=== PATIENT | male | born 1930 | race Caucasian/White ===

== ENCOUNTER 2016-08-16 11:25 | Inpatient (IN) | payer MEDICARE, BC ==
--- NOTE | ~2016-08-16 | HP ---
History And Physical [id number] [place]. [address] NAME: LUIS M LUIS : [birth year] STATUS : ADM IN [facility]#: [id number] AGE: 86 ADM/REG DATE : 08/16/16 MR#: [id number] REPORT SERV DATE: 08/16/16 DICTATED BY: SUKI SUAREZ DATE: 08/16/16 REPORT STATUS : Draft TRANSCRIBED BY: MODL DATE: 08/16/16 DATE OF ADMISSION: 08/16/2016 Primary care doctor is apparently Dr. 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 HISTORY OF PRESENT ILLNESS: This is an 86-year-old male with known past medical history of neuropathy, hypertension, apparently rheumatoid arthritis on chronic prednisone, used to take Plaquenil but no longer does, known history of essential tremor thought to be an Parkinson's then apparently was not diagnosed of Parkinson but yet is still on carbidopa levodopa, history of gout, osteoarthritis. Surgical history includes unclear back surgery and unclear nose surgery. Known additional history of CLL, apparently not undergoing treatment, sees Dr. Magana. The patient comes in past two days with increased productive cough, myalgias all over, increased urination as well as having decreased ability, not able to even get up from using the bathroom. This is not typical for patient normal state, has positive fevers, positive chills. Positive nausea. No vomiting. No diarrhea. No chest pain. No chest pressure. Positive shortness of breath. Positive productive cough. PAST MEDICAL HISTORY: See above. PAST SURGICAL HISTORY: See above. ALLERGIES: APPARENTLY NO KNOWN DRUG ALLERGIES. SOCIAL HISTORY: Used to smoke may be about 60 pack year in distant past. No alcohol. No drug use. Lives at home. 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 HOME MEDICATIONS: See MAR. We will continue what is relevant. Apparently, he is on allopurinol, carbidopa, levodopa, Lasix, gabapentin, prednisone 5 mg a day, and Voltaren. FAMILY HISTORY: Hypertension at least in one parent. REVIEW OF SYSTEMS: Review of systems done, see HPI. Otherwise, negative. OBJECTIVE: VITAL SIGNS: Currently 138/67, 98.9 temp, 77 pulse, 20 respirations, 94% on room air. GENERAL: No acute distress. HEENT: PERRLA. No scleral icterus. CARDIOVASCULAR: Regular rate and rhythm. No murmur auscultated. RESPIRATORY: Bibasilar crackles. Mild expiratory wheezing per the ER. I do not appreciate it at this time. ABDOMEN: Nontender, nondistended. Positive bowel sounds. EXTREMITIES: About 1+ to 2+ pitting edema bilaterally. History And Physical [address] [place]. [address] NAME: LUIS M LUIS : [birth year] STATUS : ADM IN PAT#: [id number] AGE: 86 ADM/REG DATE : 08/16/16 MR#: [id number] REPORT SERV DATE: 08/16/16 DICTATED BY: SUKI SUAREZ DATE: 08/16/16 REPORT STATUS : Draft TRANSCRIBED BY: TAMIKA DATE: 08/16/16 NEURO: A and O x4/4. GCS 15. Hard of hearing. LABS: White count 15.3, hemoglobin 12.5, 231,000 platelets, 4.6 potassium, 27 bicarb, 0.8 creatinine, 15 BUN, 134 sodium, 119 sugar. Troponin negative. Urinalysis; positive 70 white blood cells, moderate leukocyte esterase. EKG has a normal sinus rhythm, no ischemic ST-T changes significant artifact though with baseline. ASSESSMENT AND PLAN: 1. Sepsis. 2. Urinary tract infection. 3. Possible right middle lobe pneumonia seen on chest x-ray with right middle lobe alveolar infiltration. Poor hazy border. 4. History of immunocompromised due to prednisone at home and CLL. 5. Debility. 6. Volume overload. PLAN: We will go ahead and admit this patient. IV Levaquin Bumex, get an echo if not done in last 6 months. Get records, Levaquin after the hancock-culture, placed on Solu-Medrol, was started by the ED thought to have had a wheezing at that time. He likely will need an outpatient pulmonary function tests. Placed on carvedilol and losartan. Start losartan tomorrow if systolic is amenable, placed on Lipitor at this time, the EF or echo. All questions were answered. It took well over 60 minutes to do. Reference [email or web address] and [facility]. WST/MODL Suki Suarez DO / [id number] CC: MD Ho Ford M.D.
--- NOTE | ~2016-08-16 | DS ---
Discharge Summary [facility] [address] [place]. [address] NAME: LUIS M LUIS : [birth year] STATUS : ADM IN [facility]#: [id number] AGE: 86 ADM/REG DATE : 08/16/16 MR#: [id number] REPORT SERV DATE: 08/21/16 DICTATED BY: GIANFRANCO CARRERA DATE: 08/20/16 REPORT STATUS : Draft TRANSCRIBED BY: MODL DATE: 08/20/16 ADMISSION DATE: 08/16/2016 DISCHARGE DATE: DISCHARGE DIAGNOSES: Include: 1. Right upper lobe pneumonia present on admission and cough. 2. Volume overload that is improved. 3. Debility and falls at home. 4. History of immunocompromised, on chronic steroids. 5. History of CLL, chronic lymphocytic leukemia. 6. History of rheumatoid arthritis. 7. Leukocytosis, related to steroid use. DISCHARGE MEDICATIONS: As follows; allopurinol 300 mg daily, Tessalon 100 mg three times a day as needed for cough, Neurontin 300 mg p.o. four times a day, Inderal 20 mg twice a day, Levaquin 750 mg daily through 08/22/2016, Cozaar 25 mg daily, Prilosec 40 mg daily, prednisone 5 mg daily, albuterol nebulizers q.4 hours while awake, folic acid 1 mg daily, glucosamine one tab daily, Voltaren gel applied topically p.r.n., vitamin B12 1000 mcg every 30 days, Plaquenil 400 mg daily to resume in seven days. HISTORY OF PRESENT ILLNESS: This pleasant 86-year-old male, who presented to the [facility] with a productive cough, myalgias, and increased urination. Please see initial H and P of Dr. Igor Viveros. The patient admitted to hospitalist service for further evaluation and treatment. PROCEDURES AND IMAGING DURING THIS ADMISSION: Include a venous Doppler ultrasound lower extremity showing no evidence of any DVT. A CT of the abdomen and pelvis that showed a diverticulosis but no diverticulitis. No definite abnormality that is acute within the abdomen or pelvis. 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 Also an echocardiogram showing ejection fraction of 50% to 55%. No valvular abnormalities noted. CONTINUATION OF HOSPITAL COURSE: The patient was continued on antibiotic therapy of Levaquin, given nebulizers and O2 and initially given some diuretic therapy as well, and he began to improve somewhat although his cough was quite persistent. Given the findings of his echocardiogram, the IV Bumex was discontinued, and he was given 1 dose of p.o. torsemide, and this has been since discontinued as well. He was seen and evaluated by Physical Therapy during this admission who recommended rehab at discharge. He was evaluated by [facility] and approved for their facility and was felt safe for discharge on 08/20/2016 with the above medicines. I have also instructed followup with primary care in two to three weeks, to check CBC two days at [facility] as well. Of note too, his urinary culture came back with no growth so urinary tract infection ruled out. Updated at bedside. Patient at bedside, and they are in agreement with this plan going forward. Please note greater than 30 minutes spent on this discharge for medication teaching, followup planning, and further disposition. Discharge Summary [address] [place]. [address] NAME: LUIS M LUIS : [birth year] STATUS : ADM IN [facility]#: [id number] AGE: 86 ADM/REG DATE : 08/16/16 MR#: [id number] REPORT SERV DATE: 08/21/16 DICTATED BY: GIANFRANCO CARRERA DATE: 08/20/16 REPORT STATUS : Draft TRANSCRIBED BY: TAMIKA DATE: 08/20/16 VISHAL/TAMIKA Gianfranco Carrera NP / [id number] CC: Jeffry Larson M.D.
[~2016-08-16 11:25] MED LIST: ATEN50 PO; CO Q-10100 MG PO; FISH-EPA1000 MG PO; GLUCCHONDR PO; HALF81 PO; L40 PO; MVI PO; NEUR100 PO; SIN-CR PO; VITAMIN B-121000 MC1 SL; VITAMIN D400 UNI1 PO; VOLTAREN1 % TOP; ZAROX2.5B PO; ZESTRIL5 MG PO; [UNRECOGNIZED DRUG - REMARK]
[2016-08-16 12:26] LABS: BASOPHILS 0.1 %; BASOPHILS ABSOLUTE 0.02 10/3/uL (0.0-0.16); EOSINOPHILS 0.5 %; EOSINOPHILS ABSOLUTE 0.07 10/3/uL (0.0-0.53); ER CBC TAT 0 Hrs 07 Mins; HEMATOCRIT 34.8 % (40.0-51.0); HEMOGLOBIN 12.5 g/dL (13.6-17.8); IMMATURE GRANULOCYTES 0.5 %; IMMATURE GRANULOCYTES ABSOLUTE 0.08 10/3/uL (0.0-0.11); LYMPHOCYTES 25.1 %; LYMPHOCYTES ABSOLUTE 3.84 10/3/uL (0.67-4.30); MANUAL DIFF NO %; MEAN CORPUS HGB CONC 35.9 g/dL (32.0-36.0); MEAN CORPUSCULAR HEMOGLOB 35.7 pg (26.0-34.0); MEAN CORPUSCULAR VOLUME 99.4 fL (80-100); MEAN PLATELET VOLUME 9.2 fL (9.2-13.0); MONOCYTES 21.6 %; MONOCYTES ABSOLUTE 3.31 10/3/uL (0.21-1.20); NEUTROPHILS 52.2 %; PLATELET COUNT 231 10/3/uL (150-400); RBC DISTRIBUTION WIDTH 12.8 % (12.0-16.0); WHITE BLOOD CELLS 15.3 10/3/uL (4.5-10.5)
[2016-08-16 12:35] LABS: INTERNATIONAL NORMAL RATI 1.2 UNITS (-); PROTIME (NOT ORD) 15.3 SEC (12.0-14.5)
[2016-08-16 12:36] LABS: INFLUENZA A SCREEN NEGATIVE (NEGATIVE); INFLUENZA B SCREEN NEGATIVE (NEGATIVE)
[2016-08-16 12:36] LABS: PARTIAL THROMBO TIME 44.9 SEC (22.5-37.2)
[2016-08-16 12:42] LABS: LACTATE 1.4 MMOL/L (0.3-2.4)
[2016-08-16 12:42] LABS: CALCIUM, SERUM 8.8 MG/DL (8.5-10.4); CHEST PAIN PROFILE TAT 0 Hrs 23 Mins; CHLORIDE, SERUM 98 MMOL/L (96-112); CO2 (CARBON DIOXIDE) 27 MMOL/L (24-34); GFR AFRICAN AMERICAN 92 ML/MIN (>=60); GFR NON AFRICAN AMERICAN 80 ML/MIN (>=60); POTASSIUM, SERUM 4.6 MMOL/L (3.5-5.3); SODIUM, SERUM 134 MMOL/L (135-148); TROPONIN I <0.02 NG/ML (<0.05)
[2016-08-16 12:43] LABS: BUN (BLOOD UREA NITROGEN) 15 MG/DL (6-23); GLUCOSE, SERUM 119 MG/DL (60-99)
[2016-08-16 12:46] LABS: BAND NEUTROPHILS 21 %; BASOPHILS 1 %; BASOPHILS ABSOLUTE (CALC) 0.15 10/3/uL (0.0-0.16); EOSINOPHILS 1 %; EOSINOPHILS ABSOLUTE (CALC) 0.15 10/3/uL (0.0-0.53); ER DIFF TAT 0 Hrs 27 Mins; LYMPHOCYTES 17 %; MONOCYTES 23 %; MONOCYTES ABSOLUTE (CALC) 3.52 10/3/uL (0.21-1.20); NEUTROPHILS ABSOLUTE (CALC) 8.87 10/3/uL (2.02-8.40); SEGMENTED NEUTROPHIL (0) 37 %; TOTAL NUCLEATED CELLS 100
[2016-08-16 12:47] LABS: PLATELET ESTIMATE ADQ (ADEQUATE); POLYCHROMASIA 1+ (2-5/OIF) (0-1/OIF); TOXIC GRANULATION 1+
[2016-08-16 12:55] LABS: ASCORBIC ACID (UR NOT ORDER) NEG (NEG); BILIRUBIN, URINE NEGATIVE (NEG); ER URINALYSIS TAT 0 Hrs 09 Mins; KETONE, URINE TRACE MG/DL (NEG); LEUKOCYTE ESTERASE(NOT OR MOD (NEG); NITRITE (URINE) NEG (NEG); WBC (NOT ORDERED) (RFLEX) 17 (0-5)
[2016-08-16 13:14] LABS: PROCALCITONIN 0.31 ng/mL (<0.5)
[2016-08-16] MEDS ORDERED: PRILOSEC40 MG PO (14:58)
[2016-08-16] MEDS ORDERED: NEUR300 PO (14:58)
[2016-08-16] MEDS ORDERED: P5 PO (14:59)
[2016-08-16] MEDS ORDERED: I20 PO (14:59)
[2016-08-16] MEDS ORDERED: Z300 PO (14:59)
[2016-08-16] MEDS ORDERED: FOLIC PO (14:59)
[2016-08-16] MEDS ORDERED: PLAQ200B PO (14:59)
[2016-08-16] MEDS ORDERED: ALEVE220 MG PO (14:59)
[2016-08-16] MEDS ORDERED: PROAIR HFA INH (15:00)
[2016-08-16] MEDS ORDERED: GLUCOSAMINEPO PO (15:00)
[2016-08-16] MEDS ORDERED: B121000P IM (15:00)
[2016-08-16] MEDS ORDERED: VOLTAREN1 % TOP (15:00)
[2016-08-16] MEDS ORDERED: TURMERIC PO (15:00)
[2016-08-16 18:33] LABS: LACTATE 1.7 MMOL/L (0.3-2.4)
[2016-08-16 18:39] LABS: BUN (BLOOD UREA NITROGEN) 14 MG/DL (6-23); CALCIUM, SERUM 8.7 MG/DL (8.5-10.4); CHLORIDE, SERUM 99 MMOL/L (96-112); CO2 (CARBON DIOXIDE) 27 MMOL/L (24-34); CREATININE 0.86 MG/DL (0.70-1.30); GFR AFRICAN AMERICAN 90 ML/MIN (>=60); GFR NON AFRICAN AMERICAN 77 ML/MIN (>=60); PHOSPHORUS, SERUM 2.9 MG/DL (2.5-4.5); POTASSIUM, SERUM 4.3 MMOL/L (3.5-5.3); SGOT(AST) 39 U/L (5-40); SGPT(ALT) 50 U/L (5-65); SODIUM, SERUM 133 MMOL/L (135-148); TOTAL BILIRUBIN 0.7 MG/DL (0-1.2); TOTAL PROTEIN 6.7 G/DL (6.0-8.5)
[2016-08-16 18:40] LABS: A/G RATIO 0.7 (0.7-1.9); ALBUMIN 2.8 G/DL (3.5-5.0); ALKALINE PHOSPHATASE 63 U/L (45-117); GLOBULIN 3.9 G/DL (2.5-4.1); GLUCOSE, SERUM 209 MG/DL (60-99); ULTRASENSITIVE TSH 0.651 MCIU/ML (0.358-3.740)
[2016-08-17 06:32] LABS: BUN (BLOOD UREA NITROGEN) 18 MG/DL (6-23); CALCIUM, SERUM 8.7 MG/DL (8.5-10.4); CHLORIDE, SERUM 100 MMOL/L (96-112); CO2 (CARBON DIOXIDE) 27 MMOL/L (24-34); CREATININE 0.75 MG/DL (0.70-1.30); GFR AFRICAN AMERICAN 95 ML/MIN (>=60); GFR NON AFRICAN AMERICAN 82 ML/MIN (>=60); GLUCOSE, SERUM 162 MG/DL (60-99); PHOSPHORUS, SERUM 3.6 MG/DL (2.5-4.5); POTASSIUM, SERUM 3.7 MMOL/L (3.5-5.3); SODIUM, SERUM 139 MMOL/L (135-148)
[2016-08-17 06:43] LABS: BASOPHILS 0.1 %; BASOPHILS ABSOLUTE 0.01 10/3/uL (0.0-0.16); EOSINOPHILS 0 %; HEMATOCRIT 32.5 % (40.0-51.0); HEMOGLOBIN 11.6 g/dL (13.6-17.8); IMMATURE GRANULOCYTES 0.7 %; LYMPHOCYTES 20.5 %; LYMPHOCYTES ABSOLUTE 2.82 10/3/uL (0.67-4.30); MANUAL DIFF NO %; MEAN CORPUS HGB CONC 35.7 g/dL (32.0-36.0); MEAN CORPUSCULAR HEMOGLOB 34.9 pg (26.0-34.0); MEAN CORPUSCULAR VOLUME 97.9 fL (80-100); MEAN PLATELET VOLUME 9.1 fL (9.2-13.0); MONOCYTES 7.1 %; MONOCYTES ABSOLUTE 0.97 10/3/uL (0.21-1.20); NEUTROPHILS 71.6 %; NEUTROPHILS ABSOLUTE 9.85 10/3/uL (2.02-8.40); PLATELET COUNT 208 10/3/uL (150-400); RBC DISTRIBUTION WIDTH 12.7 % (12.0-16.0); RED CELL COUNT 3.32 10/6/uL (4.7-6.1); WHITE BLOOD CELLS 13.8 10/3/uL (4.5-10.5)
[2016-08-18 06:06] LABS: BASOPHILS 0.1 %; BASOPHILS ABSOLUTE 0.01 10/3/uL (0.0-0.16); EOSINOPHILS 0 %; HEMATOCRIT 35.4 % (40.0-51.0); HEMOGLOBIN 12.6 g/dL (13.6-17.8); IMMATURE GRANULOCYTES 0.5 %; IMMATURE GRANULOCYTES ABSOLUTE 0.08 10/3/uL (0.0-0.11); LYMPHOCYTES 17.3 %; MEAN CORPUS HGB CONC 35.6 g/dL (32.0-36.0); MEAN CORPUSCULAR HEMOGLOB 35.3 pg (26.0-34.0); MEAN CORPUSCULAR VOLUME 99.2 fL (80-100); MEAN PLATELET VOLUME 8.8 fL (9.2-13.0); NEUTROPHILS 73.1 %; NEUTROPHILS ABSOLUTE 11.44 10/3/uL (2.02-8.40); RBC DISTRIBUTION WIDTH 12.7 % (12.0-16.0); RED CELL COUNT 3.57 10/6/uL (4.7-6.1); WHITE BLOOD CELLS 15.6 10/3/uL (4.5-10.5)
[2016-08-18 06:08] LABS: MANUAL DIFF NO %; PLATELET COUNT 283 10/3/uL (150-400)
[2016-08-18 06:21] LABS: CALCIUM, SERUM 8.9 MG/DL (8.5-10.4); CHLORIDE, SERUM 98 MMOL/L (96-112); CO2 (CARBON DIOXIDE) 28 MMOL/L (24-34); CREATININE 0.93 MG/DL (0.70-1.30); GFR AFRICAN AMERICAN 85 ML/MIN (>=60); GFR NON AFRICAN AMERICAN 73 ML/MIN (>=60); GLUCOSE, SERUM 169 MG/DL (60-99); PHOSPHORUS, SERUM 3.6 MG/DL (2.5-4.5); SODIUM, SERUM 139 MMOL/L (135-148)
[2016-08-18 06:22] LABS: BUN (BLOOD UREA NITROGEN) 24 MG/DL (6-23)
[2016-08-19 05:26] LABS: BASOPHILS 0.2 %; BASOPHILS ABSOLUTE 0.03 10/3/uL (0.0-0.16); EOSINOPHILS 0 %; HEMATOCRIT 36.9 % (40.0-51.0); HEMOGLOBIN 12.9 g/dL (13.6-17.8); IMMATURE GRANULOCYTES 0.6 %; LYMPHOCYTES 26.9 %; LYMPHOCYTES ABSOLUTE 4.38 10/3/uL (0.67-4.30); MEAN PLATELET VOLUME 8.5 fL (9.2-13.0); MONOCYTES 15.7 %; MONOCYTES ABSOLUTE 2.56 10/3/uL (0.21-1.20); NEUTROPHILS 56.6 %; NEUTROPHILS ABSOLUTE 9.21 10/3/uL (2.02-8.40); PLATELET COUNT 275 10/3/uL (150-400); RBC DISTRIBUTION WIDTH 12.8 % (12.0-16.0); RED CELL COUNT 3.69 10/6/uL (4.7-6.1); WHITE BLOOD CELLS 16.3 10/3/uL (4.5-10.5)
[2016-08-19 05:27] LABS: MANUAL DIFF NO %
[2016-08-19 05:39] LABS: BUN (BLOOD UREA NITROGEN) 27 MG/DL (6-23); CALCIUM, SERUM 8.9 MG/DL (8.5-10.4); CHLORIDE, SERUM 100 MMOL/L (96-112); CO2 (CARBON DIOXIDE) 32 MMOL/L (24-34); CREATININE 1.05 MG/DL (0.70-1.30); GFR AFRICAN AMERICAN 73 ML/MIN (>=60); GFR NON AFRICAN AMERICAN 63 ML/MIN (>=60); PHOSPHORUS, SERUM 3.5 MG/DL (2.5-4.5); POTASSIUM, SERUM 3.8 MMOL/L (3.5-5.3); SODIUM, SERUM 140 MMOL/L (135-148)
[2016-08-19 05:44] LABS: GLUCOSE, SERUM 100 MG/DL (60-99)
[2016-08-19 06:38] LABS: PROCALCITONIN 0.11 ng/mL (<0.5)
[2016-08-20 06:35] LABS: HEMATOCRIT 37.8 % (40.0-51.0); HEMOGLOBIN 13.1 g/dL (13.6-17.8); MEAN CORPUS HGB CONC 34.7 g/dL (32.0-36.0); MEAN CORPUSCULAR HEMOGLOB 34.5 pg (26.0-34.0); MEAN CORPUSCULAR VOLUME 99.5 fL (80-100); MEAN PLATELET VOLUME 8.7 fL (9.2-13.0); PLATELET COUNT 273 10/3/uL (150-400); RBC DISTRIBUTION WIDTH 12.9 % (12.0-16.0); WHITE BLOOD CELLS 18.6 10/3/uL (4.5-10.5)
[2016-08-20 06:39] LABS: MANUAL DIFF YES %
[2016-08-20 06:45] LABS: BUN (BLOOD UREA NITROGEN) 26 MG/DL (6-23); CALCIUM, SERUM 8.6 MG/DL (8.5-10.4); CHLORIDE, SERUM 99 MMOL/L (96-112); CO2 (CARBON DIOXIDE) 31 MMOL/L (24-34); CREATININE 1.02 MG/DL (0.70-1.30); GFR AFRICAN AMERICAN 76 ML/MIN (>=60); GFR NON AFRICAN AMERICAN 65 ML/MIN (>=60); GLUCOSE, SERUM 97 MG/DL (60-99); POTASSIUM, SERUM 3.6 MMOL/L (3.5-5.3); SODIUM, SERUM 137 MMOL/L (135-148)
[2016-08-20 07:04] LABS: BAND NEUTROPHILS 4 %; EOSINOPHILS 1 %; EOSINOPHILS ABSOLUTE (CALC) 0.19 10/3/uL (0.0-0.53); LYMPHOCYTES 34 %; LYMPHOCYTES ABSOLUTE (CALC) 6.32 10/3/uL (0.67-4.30); MONOCYTES 7 %; NEUTROPHILS ABSOLUTE (CALC) 10.79 10/3/uL (2.02-8.40); PLATELET ESTIMATE ADQ (ADEQUATE); RBC MORPHOLOGY NORM (NORMAL); SEGMENTED NEUTROPHIL (0) 54 %; TOTAL NUCLEATED CELLS 100; TOXIC GRANULATION 1+
[2016-08-21 04:32] LABS: HEMATOCRIT 36.9 % (40.0-51.0); HEMOGLOBIN 13.1 g/dL (13.6-17.8); MEAN CORPUS HGB CONC 35.5 g/dL (32.0-36.0); MEAN CORPUSCULAR HEMOGLOB 35.4 pg (26.0-34.0); MEAN CORPUSCULAR VOLUME 99.7 fL (80-100); MEAN PLATELET VOLUME 8.4 fL (9.2-13.0); PLATELET COUNT 259 10/3/uL (150-400); RBC DISTRIBUTION WIDTH 12.6 % (12.0-16.0); WHITE BLOOD CELLS 16.9 10/3/uL (4.5-10.5)
[2016-08-21 04:36] LABS: MANUAL DIFF YES %
[2016-08-21 04:49] LABS: BUN (BLOOD UREA NITROGEN) 28 MG/DL (6-23); CALCIUM, SERUM 8.3 MG/DL (8.5-10.4); CHLORIDE, SERUM 102 MMOL/L (96-112); CREATININE 1.01 MG/DL (0.70-1.30); GFR AFRICAN AMERICAN 77 ML/MIN (>=60); GFR NON AFRICAN AMERICAN 66 ML/MIN (>=60); GLUCOSE, SERUM 101 MG/DL (60-99); POTASSIUM, SERUM 3.8 MMOL/L (3.5-5.3); SODIUM, SERUM 137 MMOL/L (135-148)
[2016-08-21 04:51] LABS: CO2 (CARBON DIOXIDE) 25 MMOL/L (24-34)
[2016-08-21 05:09] LABS: BAND NEUTROPHILS 1 %; LYMPHOCYTES 23 %; LYMPHOCYTES ABSOLUTE (CALC) 3.89 10/3/uL (0.67-4.30); MONOCYTES 6 %; MONOCYTES ABSOLUTE (CALC) 1.01 10/3/uL (0.21-1.20); SEGMENTED NEUTROPHIL (0) 70 %; TOTAL NUCLEATED CELLS 100
[2016-08-21 05:10] LABS: PLATELET ESTIMATE ADQ (ADEQUATE); RBC MORPHOLOGY NORM (NORMAL)
[2016-08-21 05:12] LABS: SMUDGE CELLS RARE; TOXIC GRANULATION 1+
== END 2016-08-21 13:59 | DRG 195 ==
LOC: ER 11:25 → 6NO 15:17
PROVIDERS: Emergency Medicine; Internal Medicine
DX: J18.9 Pneumonia, unspecified organism (principal); I71.2 Thoracic aortic aneurysm, without rupture; E87.70 Fluid overload, unspecified; G62.9 Polyneuropathy, unspecified; N28.1 Cyst of kidney, acquired; T38.0X5A Adverse effect of glucocorticoids and synthetic analogues, initial encounter; M06.9 Rheumatoid arthritis, unspecified; N40.0 Benign prostatic hyperplasia without lower urinary tract symptoms; G25.0 Essential tremor; K57.30 Diverticulosis of large intestine without perforation or abscess without bleeding; M19.90 Unspecified osteoarthritis, unspecified site; Z87.891 Personal history of nicotine dependence; Z79.52 Long term (current) use of systemic steroids; Z82.49 Family history of ischemic heart disease and other diseases of the circulatory system; Z85.6 Personal history of leukemia; Z91.81 History of falling
CPT/HCPCS: 36600; 71020; 74176; 80048; 80053; 81001; 82330; 82803; 82947; 82962; 83036; 83605; 83735; 83880; 84100; 84132; 84145; 84295; 84443; 84484; 85014; 85025; 85610; 85730; 87040; 87070; 87086; 87205; 87804; 93005; 93970; 94640; 96374; 96375; 97162-GP; 97165-GO; 99285; A9270-GY; C8929; G8978-CK-GP; G8979-CJ-GP; G8987-CJ-GO; G8988-CI-GO; J1170; J1956; J2930; Q9957

== ENCOUNTER 2016-10-12 17:39 | Inpatient (IN) | payer MEDICARE, BC ==
--- NOTE | ~2016-10-12 | OP ---
Record Of Operation [facility] [address] [place]. [address] NAME: LUIS M LUIS : [birth year] STATUS : ADM IN [facility]#: [id number] AGE: 86 ADM/REG DATE : 10/12/16 MR#: [id number] REPORT SERV DATE: 10/13/16 DICTATED BY: RUDI FRANK DATE: 10/13/16 REPORT STATUS : Draft TRANSCRIBED BY: MODL DATE: 10/13/16 DATE OF PROCEDURE: PREOPERATIVE DIAGNOSIS: Acute appendicitis. POSTOPERATIVE DIAGNOSIS: Acute appendicitis. PROCEDURE: Laparoscopic appendectomy. SURGEON: Rito Casper MD ANESTHESIA: General with local. IV FLUIDS: 1100 mL of crystalloid. ESTIMATED BLOOD LOSS: 20 mL. URINE: 300 mL. COMPLICATIONS: None. COUNTS: Correct. SPECIMEN: Appendix. BRIEF HISTORY: This patient is an 86-year-old male who presented with the acute onset of abdominal pain. It localized in the right lower quadrant over a span of 24 hours. Presented to the emergency department. Was admitted to the hospitalist. CT of the abdomen and pelvis demonstrated stranding and appendiceal wall thickening not seen on previous exam. Risks, alternatives, and benefits of the procedure were discussed with the patient and his including , DE, CVA, DVT, PE, infection, bleeding, injury to other organs, and hernia. He agreed to proceed with appendectomy. DESCRIPTION OF PROCEDURE: Patient brought to operating room, placed on operating table. Anesthetic was administered. Endotracheal intubation achieved. Abdomen was prepped and draped in standard sterile fashion. Incision was made just below the umbilicus large enough to accommodate a 12 mm trocar. A small umbilical defect was dilated to accommodate a 5 mm trocar, and insufflation was achieved. Laparoscope was inserted. Intraabdominal contents were inspected. There was some fibrin of purulent material in the right lower quadrant. Two 5 mm trocars were placed in the midline below the umbilicus, 1 just above the bladder, the other directly in between. The 5 mm trocar as the umbilicus was changed to a 12 mm trocar. The patient was placed in a head-down position, rolled to the left. The appendix was identified and found to be acutely inflamed. A window was created at the base of the appendix and the endoscopic stapler introduced. Using a blue load, the appendix was divided. Clips were applied to the staple line at cecum to achieve hemostases. Endoscopic stapler was used to divide the mesoappendix and again clips were applied to achieve Record Of Operation [address] [address] NAME: LUIS M LUIS : [birth year] STATUS : ADM IN PAT#: [id number] AGE: 86 ADM/REG DATE : 10/12/16 MR#: [id number] REPORT SERV DATE: 10/13/16 DICTATED BY: RUDI FRANK DATE: 10/13/16 REPORT STATUS : Draft TRANSCRIBED BY: TAMIKA DATE: 10/13/16 hemostasis. Irrigation drainage was inducted. Appendix was placed in an Endopouch and withdrawn through the umbilical incision. The two 5 mm trocars were removed under laparoscopic visualization and the umbilical incision trocar was removed. This incision was closed with 0 Vicryl in a [id number] fashion at the level of fascia. This was closed superficially with 4-0 Monocryl in a subcuticular fashion and Dermabond applied. The patient was extubated and transferred to recovery area in stable condition. REYNALDO/TAMIKA Rudi Frank M.D. / [id number]
--- NOTE | ~2016-10-12 | DS ---
Discharge Summary [facility] [address] [place]. [address] NAME: LUIS M LUIS : [birth year] STATUS : DIS IN PAT#: [id number] AGE: 86 ADM/REG DATE : 10/12/16 MR#: [id number] REPORT SERV DATE: 10/16/16 DICTATED BY: JAYLEN RENNER DATE: 10/15/16 REPORT STATUS : Draft TRANSCRIBED BY: MODL DATE: 10/15/16 ADMISSION DATE: 10/12/2016 DISCHARGE DATE: 10/15/2016 DISCHARGE DIAGNOSES: 1. Acute appendicitis, status post laparoscopic appendicectomy on 10/13/2016. 2. Reactive leukocytosis. 3. Immunosuppressed state. 4. Rheumatoid arthritis on chronic prednisone therapy as well as Plaquenil. 5. Hypertension. 6. Gout. 7. History of pulmonary nodules. 8. Essential tremor. CONSULTS: Dr. Cadena of Surgery. PROCEDURES: Laparoscopic appendectomy by Dr. Alex Cadena on 10/13/2016. HOSPITAL COURSE: This is an 86-year-old gentleman who was admitted to the hospital with acute abdominal pain. For details, please refer to excellent H and P by Dr. Heriberto Perry. In summary, the patient was found to have an acute appendicitis and underwent laparoscopic appendectomy. The patient tolerated the surgery well and the remainder of his hospital stay was quite benign and uneventful. The patient remained hemodynamically stable throughout the hospital stay. The patient's leukocytosis did improve steadily after the surgery. Of note, the patient was covered with broad-spectrum antibiotics for the first couple of days of the hospital stay until he had appendectomy. It was noted that the patient has gotten quite weak after surgery and thus the patient was seen by Physical Therapy, who recommended a discharge to a longterm facility. The patient is now being discharged to [facility] to continue inpatient rehab prior to returning home. DISPOSITION: Discharged to [facility]. MEDICATIONS: No changes. FOLLOWUP: 1. Please follow up with PCP in the next one to two weeks. 2. Please follow up with surgery as instructed. Total of 30 minutes spent in coordinating this patient's discharge today. MEERA/TAMIKA Jaylen Renner MD Discharge Summary [facility] [address] [place]. [address] NAME: LUIS M LUIS : [birth year] STATUS : DIS IN PAT#: [id number] AGE: 86 ADM/REG DATE : 10/12/16 MR#: [id number] REPORT SERV DATE: 10/16/16 DICTATED BY: JAYLEN RENNER DATE: 10/15/16 REPORT STATUS : Draft TRANSCRIBED BY: MODL DATE: 10/15/16 / [id number] CC: MD Ho Pastor M.D.
--- NOTE | ~2016-10-12 | CN ---
Consultation Report [facility] [address] [place]. [address] NAME: LUIS M LUIS : [birth year] STATUS : ADM IN [facility]#: [id number] AGE: 86 ADM/REG DATE : 10/12/16 MR#: [id number] REPORT SERV DATE: 10/13/16 DICTATED BY: RUDI FRANK DATE: 10/13/16 REPORT STATUS : Draft TRANSCRIBED BY: MODL DATE: 10/13/16 CONSULT NOTE DATE OF CONSULTATION: 10/12/2016 REASON FOR CONSULTATION: Appendicitis. HISTORY OF PRESENT ILLNESS: The patient is an 86-year-old male with acute onset of mid abdominal pain last evening that awoke him from sleep. Associated nausea but no vomiting. Localization has been the right lower quadrant this morning which progressively worsened. He had associated anorexia. He had no fevers, chills, or diarrhea. He initially attributed this to food poisoning since his had nausea and vomiting, and diarrhea yesterday after a shared meal. He has mild dyspnea with exertion for 30 minutes but is typically able to navigate his stairs and his two-story home without difficulty. He was last admitted to [facility] in August for community-acquired pneumonia and at that time had an echo with an ejection fraction of 50% to 55%. PAST MEDICAL HISTORY: Rheumatoid arthritis, hypertension, B12 deficiency, peripheral neuropathy, gout, DJD, history of community-acquired pneumonia. PAST SURGICAL HISTORY: Cataract, left elbow ORIF, back surgery, and colonoscopy, last 5 years ago. 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 FAMILY HISTORY: Noncontributory. MEDICATIONS: Please see the medication list which was reviewed. ALLERGIES: NONE. REVIEW OF SYSTEMS: A 12-point review of systems was conducted and is negative except as per HPI. PHYSICAL EXAMINATION: GENERAL: No acute distress. Awake, alert, and oriented x3. HEENT: Normocephalic, atraumatic. Pupils equal, round, and reactive to light. Extraocular movements intact. Moist mucous membranes. NECK: Trachea midline. CHEST: Clear to auscultation bilaterally. HEART: Regular rate and rhythm. ABDOMEN: Soft, mildly distended, tender to palpation greatest in the right lower quadrant. Positive rebound tenderness. Positive Rovsing sign. Clearly, there is focal peritonitis at the right lower quadrant. Consultation Report [facility] [address] [place] [address] NAME: LUIS M LUIS : [birth year] STATUS : ADM IN PAT#: [id number] AGE: 86 ADM/REG DATE : 10/12/16 MR#: [id number] REPORT SERV DATE: 10/13/16 DICTATED BY: RUDI FRANK DATE: 10/13/16 REPORT STATUS : Draft TRANSCRIBED BY: MODL DATE: 10/13/16 RECTAL: Deferred. GENITALIA: Deferred. EXTREMITIES: Moves all extremities with 2+ pitting edema in bilateral lower extremities. PERTINENT LABORATORY DATA: White blood cell count of 19. IMAGING: CT of the abdomen and pelvis demonstrated a thickening and dilatation of the appendix which was not previously seen on CT two months ago. ASSESSMENT: This patient is an 86-year-old male with acute appendicitis. PLAN: I discussed the risks and benefits of the procedure in detail, and he agreed to undergo surgical intervention namely appendectomy. He and his asked questions which were answered. DICTATED BY: Rito Casper MD ND/TAMIKA Rudi Frank M.D. / [id number] CC: Jeffry Bacon M.D.
--- NOTE | ~2016-10-12 | HP ---
History And Physical [place] [id number] [facility] [place]. [address] NAME: LUIS M LUIS : [birth year] STATUS : ADM IN [facility]#: [id number] AGE: 86 ADM/REG DATE : 10/12/16 MR#: [id number] REPORT SERV DATE: 10/13/16 DICTATED BY: HOME PERRY DATE: 10/12/16 REPORT STATUS : Draft TRANSCRIBED BY: MODL DATE: 10/12/16 DATE OF ADMISSION: 10/12/2016 IDENTIFYING DATA: An 86-year-old white male whose PCP is Dr. oH Arias; medical oncologist, Dr. Tam Magana; GI, Dr. Sanya Mccarthy; fire investigator, Dr. Marguerite Cook; Neurology, Michael Addison. CHIEF COMPLAINT: Abdominal pain. HISTORY OF PRESENT ILLNESS: This history of present illness is obtained by talking with the patient as well as his at bedside and I reviewed the notes that came with him from Dr. Arias's office today as well as [employer] and [employer]. The patient was here on 08/16/2016 with community-acquired right upper lobe pneumonia and failure to thrive with falls, went to [facility], got better and went home, has been in his usual state of health. Yesterday, he and his ate at a restaurant, that evening he developed nausea, and she had nausea, vomiting, and diarrhea. He took four doses of Pepto-Bismol. He states he had lower abdominal pain last night, he slept some through the night. This morning, he had right lower quadrant pain, went to see his PCP. His primary care provider ordered a CT scan of abdomen and pelvis. The radiologist reports that the patient has evidence for an enlarged appendix 12 mm in size with haziness in the adjacent fat concerning for acute appendicitis. He has also got fatty liver, stable right hepatic cysts, and lower pole of the right kidney has a hyperdense lesion that was noted on scan 10/11/2015. He has evidence for diverticulosis, but no evidence for acute diverticulitis. He has enlarged prostate. His PCP contacted our team and wanted the patient directly admitted to the hospital for abdominal pain to the Medical Service not to the Surgery Service. REVIEW OF SYSTEMS: The patient states he has chronic leg edema and he has had a little bit of recent left upper extremity edema. His PCP did a Doppler of his left upper extremity today and they noticed no DVT. The patient has not fallen in the last couple of months. He states the last time he fell was when he missed the step. He has had a little worsening cough, slight sore throat. He has stable shortness of breath for three or four years. He had one loose stool this morning. His stools were black this morning, but after he took Pepto-Bismol he has had some mild urinary incontinence. He has some mild nocturia. He denies fever, chest pain, rectal bleeding, dysuria, urinary hesitancy, anorexia or weight change. ALLERGIES: NO KNOWN DRUG ALLERGIES. PAST MEDICAL HISTORY: He denies any history of diabetes, asthma, COPD, heart disease, stroke, seizure, peptic ulcer, biliary tract disease, thyroid disease, or chronic kidney disease. He has a history of rheumatoid arthritis, and he is currently on Plaquenil and prednisone. History And Physical [address] [id number] NAME: LUIS M LUIS : [birth year] STATUS : ADM IN [facility]#: [id number] AGE: 86 ADM/REG DATE : 10/12/16 MR#: [id number] REPORT SERV DATE: 10/13/16 DICTATED BY: HOME PERRY DATE: 10/12/16 REPORT STATUS : Draft TRANSCRIBED BY: TAMIKA DATE: 10/12/16 He has hypertension, history of B12 deficiency, chronic peripheral neuropathy, hypertension, gout, osteoarthritis, colon polyps, and fatty liver. He also had hepatitis in high school. He has had previous pulmonary nodules. 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 He has had some decreased memory. He has had previous syncopal episodes. He was on Sinemet from his PCP for suspected Parkinson's. He went to neurologist, Dr. Addison, and states they took him off the Sinemet and put him on propranolol because they thought it was essential tremor. He has a history of chronic lymphocytic leukemia. HOME MEDICATIONS: 1. Tylenol p.r.n. 2. Albuterol nebulized p.r.n. 3. Allopurinol 300 mg daily. 4. Vitamin B12, 1000 mcg subcu every week. 5. Voltaren 1% topical gel to his low back. 6. Folic acid 1 mg every morning. 7. Lasix 40 mg after lunch. 8. Gabapentin 600 mg b.i.d. 9. Glucosamine chondroitin t.i.d. 10.Plaquenil 200 mg twice a day. 11.Melatonin 5 mg at bedtime. 12.Prilosec 40 mg daily. 13.Prednisone 5 mg every day, and he supposedly takes an extra dose p.r.n. swelling. 14.Propranolol 20 mg b.i.d. 15.Turmeric [id number]. 16.Fish oil [id number]. PAST SURGICAL HISTORY: He has had lumbar spine surgery, cataract resection, sinus surgery, left elbow surgery, and melanoma resection. SOCIAL HISTORY: He is . 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 He walks with a cane or a walker. He quit smoking at age 19. He does not have any significant alcohol intake. FAMILY HISTORY: Mother with rheumatoid arthritis and she at age 91. Father had hypertension and stroke. Siblings with obesity. DIAGNOSTIC DATA: CT Scan of the Abdomen and Pelvis: CT scan of the abdomen and pelvis described in the history of present illness. Venous Doppler of his left upper extremity today shows no evidence of deep vein thrombosis. His white count is. 19.8, hemoglobin 13.8, MCV is 102 and it looks like it has been that way for several years, and platelets 256,000. Sodium 137, potassium 4.6, chloride 96, CO2 is 27, BUN 15, creatinine 0.78, and glucose 117. History And Physical [address] [address] NAME: LUIS M LUIS : [birth year] STATUS : ADM IN [facility]#: [id number] AGE: 86 ADM/REG DATE : 10/12/16 MR#: [id number] REPORT SERV DATE: 10/13/16 DICTATED BY: HOME PERRY DATE: 10/12/16 REPORT STATUS : Draft TRANSCRIBED BY: TAMIKA DATE: 10/12/16 The rest of the CMP was normal. PHYSICAL EXAMINATION: VITAL SIGNS: Temp is 97.2, pulse 96, respirations 22, blood pressure 145/84, and O2 saturation is 95% on room air. BMI is 30. GENERAL: A well-developed, chronically ill-appearing male, who is mildly uncomfortable, but in no acute distress. HEENT: Head is atraumatic. Pupils are equal, round, and reactive to light. Extraocular motions are intact. No scleral icterus noted. Ear, externally unremarkable without any inflammatory changes and there is normal hearing bilaterally. Nose, noninflamed externally. Septum midline. Nares patent. Mouth, moist. Good gag. No redness of the throat or lips. NECK: Supple. No lymph node or thyroid enlargement. The carotids have good pulses. No bruits. LUNGS: Clear. Good air flow. No wheezes, no rhonchi. Normal respiratory effort. HEART: Regular rate and rhythm without murmur, gallop, click, or rub. ABDOMEN: Bowel sounds are positive. Soft and nondistended. He has tenderness that is most pronounced in the right lower quadrant. There is minimal in the right upper quadrant and the periumbilical area. No mass. No bruits. No organomegaly. EXTREMITIES: He has 2+ bilateral calf edema with chronic venous stasis changes. He has palpable pulses in his feet and wrists. He has no clubbing, no cyanosis. He has 1+ edema of the left lower forearm. He has a lot of bruising on his forearms bilaterally. NEUROLOGIC: He is alert, oriented, and cooperative. His speech is normal. His mentation is normal. His motor strength is 2/5 in all four extremities. No Babinski or clonus noted. Cranial nerves 2 through 12 grossly normal. ASSESSMENT: 1. Leukocytosis with a white count of 19.8 along with nausea and right lower quadrant pain, and the CT scan finding is most consistent with acute appendicitis in a gentleman who is immunosuppressed. 2. Dark stools probably related to the Pepto-Bismol he took last night. 3. Chronic prednisone and Plaquenil for rheumatoid arthritis. 4. See past medical history. PLAN: 1. Admit to the hospital per the PCPs request for direct admission to the hospitalist. 2. N.P.O. Status. 3. Zosyn antibiotic after getting blood cultures, also get an EKG. We will also request for procalcitonin, urine strep and Legionella antigen. Consult General Surgery juan jose and I placed a call to the on-call service. We will give him some IV stress steroids. We will check his stool guaiac. His is updated at the bedside at this time. RSG/MODL Home Perry M.D. History And Physical [place] [address] [place]. [address] NAME: LUIS M LUIS : [birth year] STATUS : ADM IN PAT#: [id number] AGE: 86 ADM/REG DATE : 10/12/16 MR#: [id number] REPORT SERV DATE: 10/13/16 DICTATED BY: HOME PERRY DATE: 10/12/16 REPORT STATUS : Draft TRANSCRIBED BY: MODL DATE: 10/12/16 / [id number] CC: Ho Miner M.D. Ho Arias M.D. Sanya Mccarthy M.D. Marguerite Cook M.D. Rudi Cadena M.D. Michael Addison M.D., PhD. Tam Magana M.D.
[~2016-10-12 17:39] MED LIST changes: +ALEVE220 MG PO; +B121000P IM; +FOLIC PO; +GLUCOSAMINEPO PO; +I20 PO; +NEUR300 PO; +P5 PO; +PLAQ200B PO; +PRILOSEC40 MG PO; +PROAIR HFA INH; +TURMERIC PO; +Z300 PO
[2016-10-12 17:52] LABS: HEMOGLOBIN 13.8 g/dL (13.6-17.8); MEAN PLATELET VOLUME 7.6 fL (6.8-10.8); PLATELET COUNT 256 10/3/uL (150-400); RBC DISTRIBUTION WIDTH 14.2 % (12.0-16.0); RED CELL COUNT 4.05 10/6/uL (4.7-6.1); WHITE BLOOD CELLS 19.8 10/3/uL (4.5-10.5)
[2016-10-12 17:55] LABS: HEMATOCRIT 41.3 % (40.0-51.0); MEAN CORPUS HGB CONC 33.3 g/dL (32.0-36.0)
[2016-10-12] MEDS ORDERED: T PO (18:38)
[2016-10-12] MEDS ORDERED: Z300 PO (18:38)
[2016-10-12] MEDS ORDERED: SIN-CR PO (18:39)
[2016-10-12] MEDS ORDERED: FOLIC PO (18:40)
[2016-10-12] MEDS ORDERED: L40 PO (18:40)
[2016-10-12] MEDS ORDERED: B121000P SC (18:40)
[2016-10-12] MEDS ORDERED: GLUCCHONDR PO (18:41)
[2016-10-12] MEDS ORDERED: NEUR600 PO (18:41)
[2016-10-12] MEDS ORDERED: COZ25 PO (18:42)
[2016-10-12] MEDS ORDERED: PLAQ200B PO (18:42)
[2016-10-12] MEDS ORDERED: PRILOSEC40 MG PO (18:44)
[2016-10-12] MEDS ORDERED: MELATONIN5 M1 PO (18:44)
[2016-10-12] MEDS ORDERED: P5 PO ×2 (18:45)
[2016-10-12] MEDS ORDERED: PROAIR HFA INH (18:46)
[2016-10-12] MEDS ORDERED: I20 PO (18:48)
[2016-10-12] MEDS ORDERED: FISH OIL PO (18:49)
[2016-10-12] MEDS ORDERED: TUMERIC PO (18:49)
[2016-10-12] MEDS ORDERED: VOLTAREN1 % TOP (18:50)
[2016-10-12 18:51] LABS: CHLORIDE, SERUM 96 MMOL/L (96-112); CO2 (CARBON DIOXIDE) 27 MMOL/L (24-34); CREATININE 0.78 MG/DL (0.70-1.30); GFR AFRICAN AMERICAN 93 ML/MIN (>=60); GFR NON AFRICAN AMERICAN 81 ML/MIN (>=60); GLUCOSE, SERUM 117 MG/DL (60-99); SGOT(AST) 18 U/L (5-40); SGPT(ALT) 19 U/L (5-65); SODIUM, SERUM 137 MMOL/L (135-148); TOTAL PROTEIN 7.3 G/DL (6.0-8.5)
[2016-10-12 18:54] LABS: ALBUMIN 3.6 G/DL (3.5-5.0); ALKALINE PHOSPHATASE 51 U/L (45-117); BUN (BLOOD UREA NITROGEN) 15 MG/DL (6-23); CALCIUM, SERUM 9.4 MG/DL (8.5-10.4); GLOBULIN 3.7 G/DL (2.5-4.1); POTASSIUM, SERUM 4.6 MMOL/L (3.5-5.3); TOTAL BILIRUBIN 1.2 MG/DL (0-1.2)
[2016-10-12 23:09] LABS: INTERNATIONAL NORMAL RATI 1.1 UNITS (-); PARTIAL THROMBO TIME 37.1 SEC (22.5-37.2); PROTIME (NOT ORD) 14.1 SEC (12.0-14.5)
[2016-10-13 05:19] LABS: BASOPHILS 0.1 %; BASOPHILS ABSOLUTE 0.01 10/3/uL (0.0-0.16); BUN (BLOOD UREA NITROGEN) 13 MG/DL (6-23); CALCIUM, SERUM 8.7 MG/DL (8.5-10.4); CHLORIDE, SERUM 100 MMOL/L (96-112); CO2 (CARBON DIOXIDE) 26 MMOL/L (24-34); CREATININE 0.74 MG/DL (0.70-1.30); EOSINOPHILS 0 %; GFR AFRICAN AMERICAN 95 ML/MIN (>=60); GFR NON AFRICAN AMERICAN 82 ML/MIN (>=60); HEMOGLOBIN 12.3 g/dL (13.6-17.8); IMMATURE GRANULOCYTES 0.6 %; IMMATURE GRANULOCYTES ABSOLUTE 0.11 10/3/uL (0.0-0.11); LYMPHOCYTES 15.1 %; LYMPHOCYTES ABSOLUTE 2.93 10/3/uL (0.67-4.30); MEAN CORPUS HGB CONC 34.8 g/dL (32.0-36.0); MEAN CORPUSCULAR HEMOGLOB 34.7 pg (26.0-34.0); MEAN CORPUSCULAR VOLUME 99.7 fL (80-100); MONOCYTES 7.4 %; MONOCYTES ABSOLUTE 1.43 10/3/uL (0.21-1.20); NEUTROPHILS 76.8 %; NEUTROPHILS ABSOLUTE 14.91 10/3/uL (2.02-8.40); PHOSPHORUS, SERUM 3.7 MG/DL (2.5-4.5); PLATELET COUNT 215 10/3/uL (150-400); POTASSIUM, SERUM 3.8 MMOL/L (3.5-5.3); RBC DISTRIBUTION WIDTH 13.4 % (12.0-16.0); RED CELL COUNT 3.54 10/6/uL (4.7-6.1); SODIUM, SERUM 135 MMOL/L (135-148); WHITE BLOOD CELLS 19.4 10/3/uL (4.5-10.5)
[2016-10-13 05:24] LABS: BUN (BLOOD UREA NITROGEN) 13 MG/DL (6-23); CALCIUM, SERUM 8.8 MG/DL (8.5-10.4); CHLORIDE, SERUM 101 MMOL/L (96-112); CO2 (CARBON DIOXIDE) 26 MMOL/L (24-34); CREATININE 0.76 MG/DL (0.70-1.30); GFR AFRICAN AMERICAN 94 ML/MIN (>=60); GFR NON AFRICAN AMERICAN 81 ML/MIN (>=60); POTASSIUM, SERUM 3.8 MMOL/L (3.5-5.3); SODIUM, SERUM 136 MMOL/L (135-148)
[2016-10-13 05:25] LABS: HEMATOCRIT 35.3 % (40.0-51.0); MANUAL DIFF NO %
[2016-10-13 05:27] LABS: ALBUMIN 2.8 G/DL (3.5-5.0); GLUCOSE, SERUM 168 MG/DL (60-99)
[2016-10-13 05:28] LABS: GLUCOSE, SERUM 168 MG/DL (60-99)
[2016-10-13 05:35] LABS: BASOPHILS 0.1 %; BASOPHILS ABSOLUTE 0.01 10/3/uL (0.0-0.16); EOSINOPHILS 0 %; IMMATURE GRANULOCYTES 0.4 %; IMMATURE GRANULOCYTES ABSOLUTE 0.08 10/3/uL (0.0-0.11); LYMPHOCYTES 14.1 %; LYMPHOCYTES ABSOLUTE 2.74 10/3/uL (0.67-4.30); MEAN CORPUS HGB CONC 34.6 g/dL (32.0-36.0); MEAN CORPUSCULAR HEMOGLOB 34.2 pg (26.0-34.0); MONOCYTES 7.3 %; MONOCYTES ABSOLUTE 1.42 10/3/uL (0.21-1.20); NEUTROPHILS 78.1 %; NEUTROPHILS ABSOLUTE 15.21 10/3/uL (2.02-8.40); PLATELET COUNT 212 10/3/uL (150-400); RBC DISTRIBUTION WIDTH 13.6 % (12.0-16.0); RED CELL COUNT 3.51 10/6/uL (4.7-6.1); WHITE BLOOD CELLS 19.5 10/3/uL (4.5-10.5)
[2016-10-13 05:40] LABS: HEMATOCRIT 34.7 % (40.0-51.0); MANUAL DIFF NO %; MEAN CORPUSCULAR VOLUME 98.9 fL (80-100)
[2016-10-14 05:52] LABS: HEMATOCRIT 33.5 % (40.0-51.0); HEMOGLOBIN 11.6 g/dL (13.6-17.8); MEAN CORPUS HGB CONC 34.6 g/dL (32.0-36.0); MEAN CORPUSCULAR HEMOGLOB 34.9 pg (26.0-34.0); MEAN CORPUSCULAR VOLUME 100.9 fL (80-100); MEAN PLATELET VOLUME 9.1 fL (9.2-13.0); PLATELET COUNT 204 10/3/uL (150-400); RBC DISTRIBUTION WIDTH 13.4 % (12.0-16.0); RED CELL COUNT 3.32 10/6/uL (4.7-6.1); WHITE BLOOD CELLS 14.2 10/3/uL (4.5-10.5)
[2016-10-14 05:53] LABS: MANUAL DIFF YES %
[2016-10-14 06:10] LABS: CALCIUM, SERUM 8.8 MG/DL (8.5-10.4); CHLORIDE, SERUM 102 MMOL/L (96-112); CO2 (CARBON DIOXIDE) 26 MMOL/L (24-34); CREATININE 0.78 MG/DL (0.70-1.30); GFR AFRICAN AMERICAN 93 ML/MIN (>=60); GFR NON AFRICAN AMERICAN 81 ML/MIN (>=60); GLUCOSE, SERUM 170 MG/DL (60-99); POTASSIUM, SERUM 4.2 MMOL/L (3.5-5.3); SODIUM, SERUM 136 MMOL/L (135-148)
[2016-10-14 06:13] LABS: BUN (BLOOD UREA NITROGEN) 23 MG/DL (6-23)
[2016-10-14 06:51] LABS: PROCALCITONIN 0.66 ng/mL (<0.5)
[2016-10-14 06:55] LABS: BAND NEUTROPHILS 5 %; LYMPHOCYTES 16 %; LYMPHOCYTES ABSOLUTE (CALC) 2.27 10/3/uL (0.67-4.30); MONOCYTES 1 %; MONOCYTES ABSOLUTE (CALC) 0.14 10/3/uL (0.21-1.20); NEUTROPHILS ABSOLUTE (CALC) 11.79 10/3/uL (2.02-8.40); PLATELET ESTIMATE ADQ (ADEQUATE); SEGMENTED NEUTROPHIL (0) 78 %; TOTAL NUCLEATED CELLS 100
[2016-10-14 06:56] LABS: MACROCYTES 1+ (5-10/OIF) (0-5/OIF)
[2016-10-15 11:54] LABS: ASCORBIC ACID (UR NOT ORDER) NEG (NEG); BILIRUBIN, URINE NEGATIVE (NEG); KETONE, URINE NEGATIVE (NEG); LEUKOCYTE ESTERASE(NOT OR NEG (NEG); WBC (NOT ORDERED) (RFLEX) < 1 (0-5)
== END 2016-10-15 16:36 | DRG 343 ==
LOC: 6NO 17:39
PROVIDERS: Hospitalist; Internal Medicine
PROC: 0DTJ4ZZ Resection of Appendix, Percutaneous Endoscopic Approach (ICD-10-PCS; principal; 2016-10-13)
DX: K35.80 Unspecified acute appendicitis (principal); I72.3 Aneurysm of iliac artery; K76.0 Fatty (change of) liver, not elsewhere classified; M06.9 Rheumatoid arthritis, unspecified; I10 Essential (primary) hypertension; K76.89 Other specified diseases of liver; K57.30 Diverticulosis of large intestine without perforation or abscess without bleeding; N40.0 Benign prostatic hyperplasia without lower urinary tract symptoms; R32 Unspecified urinary incontinence; M10.9 Gout, unspecified; M19.90 Unspecified osteoarthritis, unspecified site; Z79.899 Other long term (current) drug therapy; Z85.820 Personal history of malignant melanoma of skin; Z85.6 Personal history of leukemia; Z86.010 Personal history of colon polyps; Z87.01 Personal history of pneumonia (recurrent); Z79.52 Long term (current) use of systemic steroids; M79.89 Other specified soft tissue disorders
CPT/HCPCS: 36415; 71010; 71020; 74176; 80048; 80053; 80069; 81001; 82272; 84145; 85025; 85027; 85610; 85730; 87040; 88304; 93005; 93971; 97162-GP; A9270-GY; G8978-CK-GP; G8979-CJ-GP; J0330; J1720; J2405; J2543; J2710; J2920; J3010

== ENCOUNTER 2016-10-19 14:55 | Emergency (ER) | payer MEDICARE, BC ==
[2016-10-19 13:46] LABS: BASOPHILS 0.2 %; BASOPHILS ABSOLUTE 0.03 10/3/uL (0.0-0.16); EOSINOPHILS 1.5 %; EOSINOPHILS ABSOLUTE 0.19 10/3/uL (0.0-0.53); ER CBC TAT 0 Hrs 09 Mins; HEMATOCRIT 37.9 % (40.0-51.0); HEMOGLOBIN 13.1 g/dL (13.6-17.8); IMMATURE GRANULOCYTES 1.4 %; IMMATURE GRANULOCYTES ABSOLUTE 0.18 10/3/uL (0.0-0.11); LYMPHOCYTES ABSOLUTE 3.42 10/3/uL (0.67-4.30); MANUAL DIFF NO %; MEAN CORPUS HGB CONC 34.6 g/dL (32.0-36.0); MEAN CORPUSCULAR HEMOGLOB 34.7 pg (26.0-34.0); MEAN CORPUSCULAR VOLUME 100.3 fL (80-100); MONOCYTES 12.4 %; MONOCYTES ABSOLUTE 1.57 10/3/uL (0.21-1.20); NEUTROPHILS 57.5 %; NEUTROPHILS ABSOLUTE 7.28 10/3/uL (2.02-8.40); PLATELET COUNT 274 10/3/uL (150-400); RBC DISTRIBUTION WIDTH 13.3 % (12.0-16.0); RED CELL COUNT 3.78 10/6/uL (4.7-6.1); WHITE BLOOD CELLS 12.7 10/3/uL (4.5-10.5)
[2016-10-19 13:53] LABS: INTERNATIONAL NORMAL RATI 1.1 UNITS (-); PARTIAL THROMBO TIME 39.3 SEC (22.5-37.2); PROTIME (NOT ORD) 14.5 SEC (12.0-14.5)
[2016-10-19 14:05] LABS: A/G RATIO 0.7 (0.7-1.9); ALBUMIN 2.9 G/DL (3.5-5.0); ALKALINE PHOSPHATASE 52 U/L (45-117); BUN (BLOOD UREA NITROGEN) 22 MG/DL (6-23); CHLORIDE, SERUM 103 MMOL/L (96-112); CO2 (CARBON DIOXIDE) 28 MMOL/L (24-34); CREATININE 0.83 MG/DL (0.70-1.30); GFR AFRICAN AMERICAN 91 ML/MIN (>=60); GFR NON AFRICAN AMERICAN 79 ML/MIN (>=60); GLOBULIN 3.9 G/DL (2.5-4.1); GLUCOSE, SERUM 114 MG/DL (60-99); POTASSIUM, SERUM 4.1 MMOL/L (3.5-5.3); SGOT(AST) 19 U/L (5-40); SGPT(ALT) 30 U/L (5-65); SODIUM, SERUM 137 MMOL/L (135-148); TOTAL BILIRUBIN 0.6 MG/DL (0-1.2); TOTAL PROTEIN 6.8 G/DL (6.0-8.5); TROPONIN I <0.02 NG/ML (<0.05)
[2016-10-19 14:05] LABS: ASCORBIC ACID (UR NOT ORDER) NEG (NEG); BILIRUBIN, URINE NEGATIVE (NEG); ER URINALYSIS TAT 0 Hrs 16 Mins; KETONE, URINE NEGATIVE (NEG); LEUKOCYTE ESTERASE(NOT OR LARGE (NEG); NITRITE (URINE) NEG (NEG); WBC (NOT ORDERED) (RFLEX) 103 (0-5)
[~2016-10-19 14:55] MED LIST changes: +B121000P SC; +COZ25 PO; +FISH OIL PO; +MELATONIN5 M1 PO; +NEUR600 PO; +T PO; +TUMERIC PO
== END 2016-10-19 17:44 | disposition home or self-care (01) ==
LOC: ER 14:55
PROVIDERS: Hospitalist
DX: I95.1 Orthostatic hypotension (principal); N39.0 Urinary tract infection, site not specified; D72.829 Elevated white blood cell count, unspecified; I10 Essential (primary) hypertension; Z79.52 Long term (current) use of systemic steroids; Z79.899 Other long term (current) drug therapy
CPT/HCPCS: 70450; 71010; 80053; 81001; 84484; 85025; 85610; 85730; 87077; 87086; 87186; 93005; 99285